=== PATIENT | female | born 1955 ===

== ENCOUNTER 2024-12-27 09:25 | Emergency (ER) | payer OTHER ==
[~2024-12-27] VITALS: Ht 177.8 cm; Wt 61.2 kg
[2024-12-27 09:49] VITALS: BP 162/101
== END 2024-12-27 11:59 | disposition home or self-care (01) ==
LOC: ER 09:25
DX: M54.16 Radiculopathy, lumbar region (principal)
CPT/HCPCS: 72100; 93971; 99284-25

== ENCOUNTER 2025-04-02 15:32 | Observation (INO) | payer OTHER ==
[~2025-04-02] VITALS: Ht 177.8 cm; Wt 54.0 kg
[2025-04-02] MEDS ORDERED: Ketorolac Tromethamine 30mg Vial IV ONE (15:50)
[2025-04-02] MEDS ORDERED: Lactated Ringer's 1,000 ML IV ONE (15:55)
[2025-04-02 16:26] LABS: BASOPHILS ABSOLUTE AUTO 0.04 K/mm3 (0.00-0.23); BASOPHILS PERCENT AUTO 0 % (0-2); EOSINOPHILS ABSOLUTE AUTO 0.06 K/mm3 (0.00-0.68); EOSINOPHILS PERCENT AUTO 1 % (0-6); Hemoglobin 13.8 g/dL (11.5-16.0); IMMATURE GRAN ABSOLUTE AUTO 0.02 K/mm3 (0.00-0.10); IMMATURE GRAN PERCENT AUTO 0 % (0-1); LYMPHOCYTES ABSOLUTE AUTO 1.72 K/mm3 (0.84-5.20); LYMPHOCYTES PERCENT AUTO 19 % (21-46); MONOCYTES ABSOLUTE AUTO 0.59 K/mm3 (0.16-1.47); MONOCYTES PERCENT AUTO 7 % (4-13); Mean Corpuscular HGB 29.5 pg (26.0-34.0); Mean Corpuscular HGB Conc 32.9 g/dL (31.5-36.5); Mean Corpuscular Volume 90 fL (80-100); Mean Platelet Volume 9.1 fL (9.1-12.4); NEUTROPHILS ABSOLUTE AUTO 6.65 K/mm3 (1.96-9.15); NEUTROPHILS PERCENT AUTO 73 % (41-73); Platelet Count 325 K/mm3 (150-400); RDW Coefficient Variation 12.3 % (11.7-14.2); Red Blood Cell Count 4.68 M/mm3 (3.80-5.20); White Blood Cell Count 9.08 K/mm3 (4.00-11.30)
[2025-04-02 16:47] LABS: Albumin, Blood 3.3 g/dL (3.4-5.0); Albumin/Globulin Ratio 0.7 (0.8-1.8); Bilirubin, Total 0.4 mg/dL (0.1-1.0); Bun/Creatinine Ratio 21.2 (12.0-20.0); Calcium, Blood 9.8 mg/dL (8.5-10.1); Creatinine, Blood 0.71 mg/dL (0.40-1.00); Globulin, Blood 4.8 g/dL (2.2-4.0); Potassium, Blood 4.5 mmol/L (3.5-5.5); Total Protein, Blood 8.1 g/dL (6.4-8.2)
[2025-04-02] MEDS ORDERED: Ondansetron HCl 2 MG / ML 2ML Vial IV PRN (19:15)
[2025-04-02] MEDS ORDERED: OxyCODONE 10/Acetamin 325 TABLET PO PRN (19:15)
[2025-04-02] MEDS ORDERED: LORazepam 1 MG Tab PO PRN (19:15)
[2025-04-02] MEDS ORDERED: Morphine Sulfate 4 MG/1 ML Injection IV PRN (19:15)
[2025-04-02] MEDS ORDERED: TraZODone HCl 50 MG Tab PO PRN (19:20)
[2025-04-02] MEDS ORDERED: Ketorolac Tromethamine 15mg Vial IV PRN (20:30)
[2025-04-02 21:14] VITALS: BP 108/65
--- NOTE | 2025-04-02 21:18 | NUR ---
ADMISSION NOTE PT ARRIVED TO RM 310 AT 2111. PT WAS AOX4, CALM AND COOPERATIVE. PT EMOTIONAL ABOUT DIAGNOSIS AND HER FUTURE PLANS. 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 SHE VERBALZIED UNDERSTANDING. PT IS CHAIRFAST DUE TO PAIN AND FATIGUE. THIS RN TO ASSUME CARE.
[2025-04-03 03:20] VITALS: BP 103/59
--- NOTE | 2025-04-03 06:09 | NUR ---
SHIFT SUMMARY PT HAS BEEN RESTING IN BED OVERNIGHT. PT HAS BEEN AOX4, CALM AND COOPERATIVE. WHEN PT ARRIVED FROM ER, SHE WAS FATIGUED AND EMOTIONAL, DUE TO HER RECENT DIAGNOSIS. PT HAS BEEN PLEASANT THROUGHOUT SHIFT. SHE HAS BEEN 1PA TO RESTROOM OVERNIGHT. 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 PT HAS BEEN AWAITING PALLIATIVE CARE CONSULT. PT HAD UNEVENTFUL NIGHT.
[2025-04-03 07:50] VITALS: BP 122/63
[2025-04-03] MEDS ORDERED: TRELEGY ELLIPT1 EACH INH (12:54)
[2025-04-03] MEDS ORDERED: ALBU90OI INH (12:55)
[2025-04-03] MEDS ORDERED: IPRAT-ALBUT 0.5-3 ML NEB (12:56)
[2025-04-03] MEDS ORDERED: GABA100 PO (12:57)
[2025-04-03] MEDS ORDERED: BUPROPION XL150 M1 PO (12:57)
[2025-04-03] MEDS ORDERED: OXYC5 PO (12:58)
[2025-04-03] MEDS ORDERED: ONDA8 PO (12:59)
[2025-04-03] MEDS ORDERED: OLAN2.5 PO (13:00)
--- NOTE | 2025-04-03 15:42 | NUR ---
PLAN IS TO D/C HOME TODAY WITH [facility] TOMORROW. SHE HAS GOOD SUPPORT. SISTER IS PICKING UP RX'S FOR PAIN MANAGEMENT PRIOR TO HOSPICE ADMISSION. PC TO REMAIN AVAILABLE NEEDED.
--- NOTE | 2025-04-03 16:03 | NUR ---
PT ADMITTED FOR ASSISTANCE SETTING UP HOSPICE. DISCHARGED WITH RX FOR PERCOCET AND ROXONOL FOR PAIN. PT STATES EFFECTIVE RELEIF WITH 1 PERCOCET 10MG. PORTABLE OXYGEN DELIVERED. S.O. HERE TO TAKE PT HOME. STAFF WHEELCHAIR ESCORT TO CAR [id number]
== END 2025-04-03 15:53 | disposition hospice, home (50) ==
LOC: ER 15:32 → MEDS 15:33 → ERHOLD 19:15 → ER 19:15 → MEDS 19:15 → ERHOLD 21:07 → MEDS 21:07
PROVIDERS: Emergency Medicine; ADMIT Internal Medicine
DX: C34.91 Malignant neoplasm of unspecified part of right bronchus or lung (principal); C79.31 Secondary malignant neoplasm of brain; C79.51 Secondary malignant neoplasm of bone; J96.01 Acute respiratory failure with hypoxia; Z87.891 Personal history of nicotine dependence; Z66 Do not resuscitate
CPT/HCPCS: 71045; 71260; 80053; 84484; 85025; 93005; 93010; 94760; 96361; 96374-59; 99285-25; A9270; J1885; J7120; Q9967